=== PATIENT | male | born 1965 | race Caucasian/White ===

== ENCOUNTER 2017-02-24 03:08 | Inpatient (IN) ==
--- NOTE | 2017-02-19 10:47 | EKG Report ---
Test Performed on : 02/19/2017 10:38:13 AM Test Reason : PAT Blood Pressure : / mmHG Vent. Rate : 068 BPM Atrial Rate : 068 BPM P-R Int : 146 ms QRS Dur : 108 ms QT Int : 392 ms P-R-T Axes : 053 017 053 degrees QTc Int : 416 ms Normal sinus rhythm. Normal ECG When compared with ECG of 17-NOV-2015 16:18, No significant change was found Confirmed by Ed Bey MD ([id number]) on 02/20/2017 12:08:24 PM
[2017-02-19 11:09] LABS: MANUAL DIFF NEEDED? NO; URINE MICRO REVIEW NEEDED? NO; URINE SOURCE CLEAN CATCH
[2017-02-19 11:11] LABS: BASO% 0.8 % (0.0-0.8); EOS# 0.26 X1000 (0.0-0.7); EOS% 5.3 % (0.0-10.0); HEMATOCRIT 42.1 % (42.0-52.0); HEMOGLOBIN 14.7 g/dL (14.0-18.0); LYMPH# 1.51 X1000 (1.2-3.4); LYMPH% 30.9 % (20.5-51.1); MCH 32.5 PG (27-31); MCHC 34.9 g/dL (33-37); MCV 93.1 FL (81-99); MONO# 0.59 X1000 (0.11-0.59); MONO% 12.1 % (1.7-9.3); MPV 8.8 FL (7.4-10.4); NEUT% 50.9 % (42.2-75.2); PLT 282 X1000 (130-400); RBC 4.52 XMIL (4.7-6.1)
[2017-02-19 11:14] LABS: BILIRUBIN URINE NEGATIVE (NEGATIVE); BLOOD URINE NEGATIVE (NEGATIVE); COLOR YELLOW; GLUCOSE URINE NEGATIVE (NEGATIVE); LEUKOCYTES URINE NEGATIVE (NEGATIVE); NITRITE URINE NEGATIVE (NEGATIVE); PROTEIN URINE 30 mg/dL (NEGATIVE); SP GRAVITY URINE 1.031; TURBIDITY URINE CLEAR (CLEAR); UR EPITHELIAL CELLS <10 /HPF (<10); URINE BACTERIA NEGATIVE /HPF; URINE RBC <10 /HPF (<10); URINE WBC <10 /HPF (<10); UROBILINOGEN URINE NORMAL (NORMAL)
[2017-02-19 11:20] LABS: INR 0.97; PROTIME 10.2 Seconds (9.2-11.7); PTT 26.6 Seconds (22.0-36.0)
[2017-02-19 12:02] LABS: AGAP 12; BUN 15 mg/dL (8-22); CHLORIDE 98 mmol/L (98-107); COSMO 272; POTASSIUM 4.1 mmol/L (3.5-5.1); SODIUM 136 mmol/L (136-145); TCO2 26 mmol/L (25-35)
[2017-02-24] MEDS ORDERED: COLACE ONE (05:42)
[2017-02-24] MEDS ORDERED: PEPCID ONE (05:42)
[2017-02-24] MEDS ORDERED: REGLAN ONE (05:42)
[2017-02-24] MEDS ORDERED: LYRICA ONE (05:42)
[2017-02-24] MEDS ORDERED: KEFZOL 1 GM/D5W 1 GM/50 ML IVPB ONE (05:43)
[2017-02-24] MEDS ORDERED: LR 1,000 ML ONE (05:43)
[2017-02-24] MEDS ORDERED: CELEBREX ONE (05:43)
[2017-02-24] MEDS ORDERED: TORADOL ONE (06:55)
[2017-02-24] MEDS ORDERED: CYKLOKAPRON 1,000 MG/NS 1,000 MG/100 ML IVPB ONE (06:56)
[2017-02-24] MEDS ORDERED: SODIUM CHLORIDE 0.9% ONE (06:56)
[2017-02-24] MEDS ORDERED: MARCAINE 0.25% PF/EPI 1:200,000 ONE (06:56)
[2017-02-24] MEDS ORDERED: NEOSPORIN G.U. IRRIGANT ONE (06:56)
[2017-02-24] MEDS ORDERED: EXPAREL 1.3% ONE (06:56)
[2017-02-24] MEDS ORDERED: DIPRIVAN 1% 500 MG/50 ML BOTTLE ONE (06:58)
[2017-02-24 08:20] LABS: URINE MICRO REVIEW NEEDED? NO; URINE SOURCE CATH
[2017-02-24 08:24] LABS: BILIRUBIN URINE NEGATIVE (NEGATIVE); BLOOD URINE TRACE (NEGATIVE); COLOR STRAW; GLUCOSE URINE NEGATIVE (NEGATIVE); LEUKOCYTES URINE NEGATIVE (NEGATIVE); NITRITE URINE NEGATIVE (NEGATIVE); PROTEIN URINE NEGATIVE (NEGATIVE); SP GRAVITY URINE 1.012; TURBIDITY URINE CLEAR (CLEAR); UROBILINOGEN URINE NORMAL (NORMAL)
[2017-02-24 08:25] LABS: UR EPITHELIAL CELLS <10 /HPF (<10); URINE BACTERIA NEGATIVE /HPF; URINE RBC <10 /HPF (<10); URINE WBC <10 /HPF (<10)
[2017-02-24] MEDS ORDERED: NS 1,000 ML ONE (09:43)
[2017-02-24] MEDS ORDERED: VERSED ONE (09:47)
[2017-02-24] MEDS ORDERED: FENTANYL ONE (09:47)
[2017-02-24] MEDS ORDERED: STERILE WATER INJ. ONE (09:57)
[2017-02-24] MEDS ORDERED: NEO-SYNEPHRINE ONE (09:57)
[2017-02-24] MEDS ORDERED: DECADRON ONE (09:57)
[2017-02-24] MEDS ORDERED: OFIRMEV 1000 MG/ISOTONIC SOLN 1,000 MG/100 ML BOTTLE ONE (09:57)
[2017-02-24] MEDS ORDERED: XYLOCAINE-MPF 2% ONE (09:57)
[2017-02-24] MEDS ORDERED: ZOFRAN ONE (09:57)
[2017-02-24] MEDS ORDERED: LR 3,000 ML ONE (09:58)
[2017-02-24] MEDS ORDERED: ZOFRAN IV PRN (10:34)
[2017-02-24] MEDS ORDERED: MILK OF MAGNESIA PO PRN (10:34)
[2017-02-24] MEDS ORDERED: VITAMIN D PO SCH (10:45)
[2017-02-24] MEDS: ULTRAM PO SCH ×3 (11:44→19:27)
[2017-02-24] MEDS: NS 1,000 ML IV SCH ×2 (11:45→21:41)
--- NOTE | 2017-02-24 13:08 | OPERATIVE NOTE ---
PROCEDURE DATE: 02/24/2017 PREOPERATIVE DIAGNOSIS: Left hip degenerative joint disease. POSTOPERATIVE DIAGNOSIS: Left hip degenerative joint disease. PROCEDURE PERFORMED: Left anterior total hip arthroplasty using [facility] size 10 femoral component, a size 50 hemispherical shell, a 32 mm liner and a 32 mm ceramic head. ANESTHESIA: Spinal. SURGEON: Conor Toscano MD CHILD CAREGIVER PRIVATE HOME: [facility] COMPLICATIONS: None. BLOOD LOSS: Minimal. DRAINS: Hemovac x1. DESCRIPTION OF PROCEDURE: The patient was brought to the operative suite and placed in supine position. After successful administration of spinal anesthesia, the patient was placed on the OSI table in the usual position for left hip. The left hip was then prepped and draped in the usual sterile fashion. A longitudinal incision was made beginning 2 cm distal, 2 cm lateral to the anterior superior iliac spine, extending distally and slightly laterally 8 cm. It was dissected sharply through skin subcutaneous tissue down to the tensor fascia. The tensor fascia was incised and dissected bluntly down deep tensor fascia. The deep tensor fascia was incised. The circumflex vessels were electrocauterized, exposing the anterior capsule. A T-capsulotomy was performed, exposing the femoral neck. A femoral neck cut was made with an oscillating saw. The femoral head was removed with the power corkscrew. The labrum was resected. The acetabulum was serially reamed to 50 to accept a 50 cup. The 50 cup was then driven into place in the proper amount of inclination and anteversion. Once this was verified to be in good position, the liner was locked onto the shell. Attention was then directed to the femur. It was externally rotated, extended, adducted, and elevated out of the wound with the hook on the OSI bed. The lateral neck was rongeured. The canal was serially broached to a size 10. A size 10 high offset 0 neck length, 32 mm trial was found to be excellent stability, offset and leg length. The trial was removed. The definitive stem was seated on the femur and then the ceramic head was locked onto the Willard taper of the stem. The hip was then reduced. It was again found to be in excellent position under fluoroscopy. The anterior capsule was repaired with #2 FiberWire. The hip was copiously infiltrated with Exparel, including the posterior capsule, anterior capsule, anterior musculature, and subcutaneous tissue. A drain was placed deep to the tensor fascia. The tensor fascia was closed with running 0 V-Loc suture. The skin edge was then approximated with 2-0 Vicryl, then closed with a 4-0 running V-Loc suture and then Prineo Dermabond. A sterile dressing was placed over the drain. The patient tolerated the procedure well without complication. At the end of the procedure, all counts correct x2. The patient was transferred to the recovery room in stable condition. cc: Conor Toscano MD
[2017-02-24] MEDS ORDERED: CYKLOKAPRON 1,000 MG in NS 100 ML IV ONE (13:30)
[2017-02-24] MEDS: KEFZOL 1 GM/D5W 1 GM/50 ML IVPB IV SCH ×2 (14:35→23:49)
[2017-02-24] MEDS: TYLENOL PO SCH ×2 (17:07→21:44)
[2017-02-24] MEDS ORDERED: AMBIEN PO PRN (21:00)
[2017-02-24] MEDS: PERIDEX MT SCH (21:41)
[2017-02-24] MEDS: COLACE PO SCH (21:44)
[2017-02-24] MEDS: LYRICA PO SCH (21:44)
[2017-02-24] MEDS: OXY IR PO PRN (21:45)
[2017-02-24] MEDS: MORPHINE IV PRN (23:49)
[2017-02-25] MEDS: ULTRAM PO SCH ×2 (02:07→09:44)
[2017-02-25] MEDS: MORPHINE IV PRN (02:46)
[2017-02-25 05:38] LABS: HEMATOCRIT 30.5 % (42.0-52.0); HEMOGLOBIN 10.6 g/dL (14.0-18.0)
[2017-02-25 05:51] LABS: AGAP 9; BUN 14 mg/dL (8-22); CALCIUM 7.8 mg/dL (8.8-10.2); CHLORIDE 103 mmol/L (98-107); COSMO 275; POTASSIUM 4.4 mmol/L (3.5-5.1); SODIUM 135 mmol/L (136-145); TCO2 23 mmol/L (25-35)
[2017-02-25] MEDS ORDERED: XARELTO PO SCH (06:00)
[2017-02-25] MEDS: TYLENOL PO SCH ×2 (06:31→12:35)
[2017-02-25] MEDS: OXY IR PO PRN ×2 (06:35→12:39)
[2017-02-25] MEDS ORDERED: PRILOSEC PO SCH (07:00)
[2017-02-25] MEDS: NS 1,000 ML IV SCH (08:07)
[2017-02-25] MEDS ORDERED: PRINZIDE 20/12.5MG PO SCH (09:00)
[2017-02-25] MEDS ORDERED: CELEBREX PO SCH (09:00)
[2017-02-25] MEDS ORDERED: DECADRON IV ONE (09:00)
[2017-02-25] MEDS: LYRICA PO SCH (09:44)
[2017-02-25] MEDS: COLACE PO SCH (09:44)
[2017-02-25] MEDS: PERIDEX MT SCH (09:45)
[2017-02-25 13:55] VITALS: BP 121/70
--- NOTE | 2017-02-25 16:21 | DISCHARGE SUMMARY ---
ADMISSION DATE: 02/24/2017 DISCHARGE DATE: 02/25/2017 DISCHARGE DIAGNOSIS: Left hip degenerative joint disease status post left total hip arthroplasty. DISCHARGE MEDICATIONS: See discharge medication list. DISPOSITION: The patient is discharged home with home health. DISCHARGE INSTRUCTIONS: Instructions for total hip arthroplasty protocol. Instructed to return to see Dr. Toscano next . HOSPITAL COURSE: On the day of admission, patient underwent a left total hip arthroplasty. His postoperative course was unremarkable. At discharge, he is afebrile tolerating a regular diet. Ambulating well with physical therapy. He walked 100 feet yesterday. His wound is clean, dry, and intact without sign of infection. His hemoglobin is 10.6 and hematocrit is 30.5. 25 mL was obtained from the drain. He is discharged home with home health in stable condition with instructions to follow up as described above. Dictated by LAUREN Day for Conor Toscano MD cc: LAUREN Day MD
== END 2017-02-25 14:21 | disposition home health service (06) ==
LOC: SURHOLD 03:08 → 4N 08:16
PROVIDERS: ADMIT Orthopaedic Surgery; ATTEND Orthopaedic Surgery